=== PATIENT | female | born 1945 ===

== ENCOUNTER 2021-02-10 18:26 | Outpatient (REF) | payer MEDICARE, SELFPAY ==
[2021-02-11 14:22] LABS: COVID-19 RT-PCR UVMMC Result Negative (Negative)
== END 2021-02-10 18:27 | disposition home or self-care (01) ==
LOC: NCHCN 18:26
PROVIDERS: Visit Provider Nurse Practitioner Family
DX: Z20.822 Contact with and (suspected) exposure to COVID-19 (principal)
CPT/HCPCS: U0003; U0005